=== PATIENT | female | born 1955 | race Caucasian/White ===

== ENCOUNTER → 2020-02-06 | Outpatient (CLI) | payer MEDICARE ==
[2020-02-06 12:34] LABS: BASO % 1 % (0-3); EOS % 0 % (0-3); HEMATOCRIT 24.3 % (36.0-47.0); HEMOGLOBIN 7.9 g/dL (12.0-15.5); LYMPH % 22 % (24-48); MEAN CORPUSCULAR HEMOGLOBIN 27 pg (25-35); MEAN CORPUSCULAR HGB CONC 33 g/dL (31-37); MEAN CORPUSCULAR VOLUME 84 fL (79-100); MONO # 0.2 x10^3/uL (0.0-1.1); MONO % 5 % (0-9); NEUT # 3.2 x10^3uL (1.8-7.7); NEUT % 72 % (31-73); PLATELET COUNT 296 x10^3/uL (140-400); RED BLOOD COUNT 2.89 x10^6/uL (3.50-5.40); RED CELL DISTRIBUTION WIDTH 14.6 % (11.5-14.5); WHITE BLOOD COUNT 4.4 x10^3/uL (4.0-11.0)
== END ==
LOC: LAB 11:41
PROVIDERS: ATTEND Obstetrics & Gynecology Gynecologic Oncology
DX: C56.9 Malignant neoplasm of unspecified ovary (principal)
CPT/HCPCS: 36415; 85025

== ENCOUNTER 2020-02-13 11:55 | Emergency (ER) | payer MEDICARE ==
[~2020-02-13] VITALS: Ht 165.1 cm; Wt 55.0 kg
[2020-02-13 12:09] VITALS: BP 106/70
--- NOTE | 2020-02-13 12:15 | PHYS DOC ---
General Adult EDM: Chief Complaint: SUTURE/STAPLE REMOVAL HPI: HPI: Patient is a 64-year-old female who presents for suture removal. Patient had a port placed 1 week ago for chemo treatments for ovarian cancer. Patient denies redness or pain to the site. (HAWA SYKES APRN) Review of Systems: Review of Systems: Constitutional: Denies fever or chills Eyes: Denies change in visual acuity HENT: Denies nasal congestion or sore throat Respiratory: Denies cough or shortness of breath Cardiovascular: Denies chest pain or edema GI: Denies abdominal pain, nausea, vomiting, bloody stools or diarrhea : Denies dysuria Musculoskeletal: Denies back pain or joint pain Integument: Denies rash Neurologic: Denies headache, focal weakness or sensory changes Endocrine: Denies polyuria or polydipsia Lymphatic: Denies swollen glands Psychiatric: Denies depression or anxiety (HAWA SYKES APRN) Physical Exam: PE: Constitutional: Well developed, well nourished, no acute distress, non-toxic appearance. [] HENT: Normocephalic, atraumatic, bilateral external ears normal, oropharynx moist, no oral exudates, nose normal. [] Eyes: PERRLA, EOMI, conjunctiva normal, no discharge. [] Neck: Normal range of motion, no tenderness, supple, no stridor. [] Cardiovascular:Heart rate regular rhythm, no murmur [] Lungs & Thorax: Bilateral breath sounds clear to auscultation [] Abdomen: Bowel sounds normal, soft, no tenderness, no masses, no pulsatile masses. [] Skin: Warm, dry, no erythema, no rash. [] Back: No tenderness, no CVA tenderness. [] Extremities: No tenderness, no cyanosis, no clubbing, ROM intact, no edema. [] Neurologic: Alert and oriented X 3, normal motor function, normal sensory function, no focal deficits noted. [] Psychologic: Affect normal, judgement normal, mood normal. [] (HAWA SYKES APRN) EKG: EKG: [] (HAWA SYKES APRN) Radiology/Procedures: Radiology/Procedures: [] (HAWA SYKES APRN) Heart Score: Risk Factors: Risk Factors: DM, Current or recent (<one month) smoker, HTN, HLP, family history of CAD, obesity. Risk Scores: Score 0 - 3: 2.5% MACE over next 6 weeks - Discharge Home Score 4 - 6: 20.3% MACE over next 6 weeks - Admit for Clinical Observation Score 7 - 10: 72.7% MACE over next 6 weeks - Early Invasive Strategies (HAWA SYKES APRN) Course & Med Decision Making: Course & Med Decision Making Pertinent Labs and Imaging studies reviewed. (See chart for details) [] 64-year-old female presents with suture removal from port placed 1 week ago. Patient denies pain or redness to incision site. (HAWA SYKES APRN) Course & Med Decision Making I have participated in the care of this patient and I have reviewed and agree with all pertinent clinical information above including history, exam, and recom mendations. (BENJAMIN CHURCH MD) Dragon Disclaimer: Dragon Disclaimer: This electronic medical record was generated, in whole or in part, using a voice recognition dictation system. (HAWA SYKES APRN) Departure Departure: Impression: Primary Impression: Visit for suture removal Disposition: 01 DC HOME SELF CARE/HOMELESS Condition: GOOD Referrals: JOSE J MCCONNELL RN, BC, [employer]ING OPERATOR (PCP) Patient Instructions: Suture Removal HAWA SYKES APRN Feb 13, 2020 12:15 BENJAMIN CHURCH MD Feb 14, 2020 13:11
== END 2020-02-13 12:45 | disposition home or self-care (01) ==
LOC: ER 11:55
DX: T14.8XXD Other injury of unspecified body region, subsequent encounter (principal); X58.XXXD Exposure to other specified factors, subsequent encounter
CPT/HCPCS: 99281

== ENCOUNTER → 2020-03-26 | Outpatient (CLI) | payer MEDICARE ==
[2020-03-26 12:05] LABS: BASO % 1 % (0-3); EOS % 0 % (0-3); HEMATOCRIT 27.7 % (36.0-47.0); HEMOGLOBIN 8.8 g/dL (12.0-15.5); LYMPH # 1.1 x10^3/uL (1.0-4.8); LYMPH % 21 % (24-48); MEAN CORPUSCULAR HEMOGLOBIN 29 pg (25-35); MEAN CORPUSCULAR HGB CONC 32 g/dL (31-37); MEAN CORPUSCULAR VOLUME 92 fL (79-100); MONO # 0.7 x10^3/uL (0.0-1.1); MONO % 13 % (0-9); NEUT # 3.4 x10^3uL (1.8-7.7); NEUT % 65 % (31-73); PLATELET COUNT 268 x10^3/uL (140-400); RED BLOOD COUNT 3.01 x10^6/uL (3.50-5.40); WHITE BLOOD COUNT 5.2 x10^3/uL (4.0-11.0)
[2020-03-26 12:12] LABS: ALBUMIN 2.8 g/dL (3.4-5.0); ALBUMIN/GLOBULIN RATIO 0.9 (1.0-1.7); CALCIUM 8.5 mg/dL (8.5-10.1); CREATININE 0.8 mg/dL (0.6-1.0); GFR 71.8; MAGNESIUM 1.9 mg/dL (1.8-2.4); TOTAL BILIRUBIN 0.2 mg/dL (0.2-1.0)
[2020-03-26 12:30] LABS: PLT ESTIMATE ADEQUATE (ADEQUATE)
[2020-03-26 12:31] LABS: ANISOCYTOSIS SLIGHT; HYPOCHROMIA SLIGHT; OVALOCYTES PRESENT; POLYCHROMASIA MOD
== END ==
LOC: LAB 10:49
PROVIDERS: ATTEND Obstetrics & Gynecology Gynecologic Oncology
DX: C56.9 Malignant neoplasm of unspecified ovary (principal)
CPT/HCPCS: 36415; 80053; 83735; 85025

== ENCOUNTER → 2020-04-02 | Outpatient (CLI) | payer MEDICARE ==
[2020-04-02 12:11] LABS: BASO % 0 % (0-3); EOS % 1 % (0-3); HEMATOCRIT 27.2 % (36.0-47.0); HEMOGLOBIN 8.8 g/dL (12.0-15.5); LYMPH # 1.1 x10^3/uL (1.0-4.8); LYMPH % 30 % (24-48); MEAN CORPUSCULAR HEMOGLOBIN 30 pg (25-35); MEAN CORPUSCULAR HGB CONC 32 g/dL (31-37); MEAN CORPUSCULAR VOLUME 91 fL (79-100); MONO # 0.2 x10^3/uL (0.0-1.1); MONO % 6 % (0-9); NEUT # 2.4 x10^3uL (1.8-7.7); NEUT % 63 % (31-73); PLATELET COUNT 163 x10^3/uL (140-400); RED BLOOD COUNT 2.97 x10^6/uL (3.50-5.40); RED CELL DISTRIBUTION WIDTH 21.4 % (11.5-14.5); WHITE BLOOD COUNT 3.8 x10^3/uL (4.0-11.0)
[2020-04-02 14:22] LABS: OVALOCYTES PRESENT; PLT ESTIMATE ADEQUATE (ADEQUATE); TEAR DROP CELLS PRESENT
== END ==
LOC: LAB 11:14
PROVIDERS: ATTEND Obstetrics & Gynecology Gynecologic Oncology
DX: C56.9 Malignant neoplasm of unspecified ovary (principal)
CPT/HCPCS: 36415; 85025

== ENCOUNTER → 2020-04-09 | Outpatient (CLI) | payer MEDICARE ==
[2020-04-09 15:36] LABS: BASO % 0 % (0-3); EOS % 1 % (0-3); HEMATOCRIT 31.5 % (36.0-47.0); LYMPH # 1.2 x10^3/uL (1.0-4.8); LYMPH % 33 % (24-48); MEAN CORPUSCULAR HEMOGLOBIN 30 pg (25-35); MEAN CORPUSCULAR HGB CONC 32 g/dL (31-37); MEAN CORPUSCULAR VOLUME 93 fL (79-100); MONO # 0.5 x10^3/uL (0.0-1.1); MONO % 15 % (0-9); NEUT # 1.8 x10^3uL (1.8-7.7); NEUT % 51 % (31-73); PLATELET COUNT 240 x10^3/uL (140-400); RED BLOOD COUNT 3.38 x10^6/uL (3.50-5.40); RED CELL DISTRIBUTION WIDTH 21.5 % (11.5-14.5); WHITE BLOOD COUNT 3.6 x10^3/uL (4.0-11.0)
[2020-04-09 16:06] LABS: ALBUMIN 3.3 g/dL (3.4-5.0); CALCIUM 8.8 mg/dL (8.5-10.1); CREATININE 0.7 mg/dL (0.6-1.0); GFR 83.7; TOTAL BILIRUBIN 0.2 mg/dL (0.2-1.0); TOTAL PROTEIN 6.6 g/dL (6.4-8.2)
[2020-04-09 16:07] LABS: MAGNESIUM 1.9 mg/dL (1.8-2.4)
[2020-04-09 22:17] LABS: ANISOCYTOSIS MOD; PLT ESTIMATE ADEQUATE (ADEQUATE)
== END ==
LOC: LAB 14:00
PROVIDERS: ATTEND Obstetrics & Gynecology Gynecologic Oncology
DX: C56.9 Malignant neoplasm of unspecified ovary (principal)
CPT/HCPCS: 36415; 80053; 83735; 85025

== ENCOUNTER → 2020-06-15 | Outpatient (CLI) | payer MEDICARE ==
--- NOTE | 2020-06-15 08:56 | RAD ---
ACUTE ABDOMEN SERIES History: Bloating, pain, constipation, ovarian cancer. Comparison: None. Findings: Frontal chest and supine and upright views of the abdomen. Cardiomediastinal silhouette is normal. There is no pleural effusion or pneumothorax. The lungs are clear. No pneumoperitoneum is identified. There are several air-fluid levels on the upright image. There is gaseous distention of colon in the central abdomen, probably the transverse colon. There are several air-filled nondilated small bowel loops. No obvious organomegaly. There is mild right convexity thoracic scoliosis. IMPRESSION: 1. No acute cardiopulmonary process. 2. Gaseous distention of the transverse colon. No distal colonic gas is seen. Colonic obstruction or ileus are considerations. Electronically signed by: Clement Augustin MD (06/15/2020 8:54 AM) [id number]
== END ==
LOC: RAD 08:16
DX: C56.9 Malignant neoplasm of unspecified ovary (principal); C77.8 Secondary and unspecified malignant neoplasm of lymph nodes of multiple regions; D64.81 Anemia due to antineoplastic chemotherapy; R18.8 Other ascites
CPT/HCPCS: 74022

== ENCOUNTER → 2020-07-17 | Outpatient (CLI) | payer MEDICARE ==
[2020-07-17 10:14] LABS: BASO % 1 % (0-3); EOS % 1 % (0-3); HEMATOCRIT 34.4 % (36.0-47.0); HEMOGLOBIN 11.2 g/dL (12.0-15.5); LYMPH # 1.7 x10^3/uL (1.0-4.8); LYMPH % 35 % (24-48); MEAN CORPUSCULAR HEMOGLOBIN 30 pg (25-35); MEAN CORPUSCULAR HGB CONC 33 g/dL (31-37); MEAN CORPUSCULAR VOLUME 92 fL (79-100); MONO # 0.2 x10^3/uL (0.0-1.1); MONO % 3 % (0-9); NEUT % 60 % (31-73); PLATELET COUNT 256 x10^3/uL (140-400); RED BLOOD COUNT 3.75 x10^6/uL (3.50-5.40); RED CELL DISTRIBUTION WIDTH 14.1 % (11.5-14.5)
== END ==
LOC: LAB 09:07
PROVIDERS: ATTEND Obstetrics & Gynecology Gynecologic Oncology
DX: C56.9 Malignant neoplasm of unspecified ovary (principal)
CPT/HCPCS: 36415; 85025

== ENCOUNTER → 2020-07-25 | Outpatient (CLI) | payer MEDICARE ==
[2020-07-25 12:45] LABS: BASO % 1 % (0-3); EOS % 1 % (0-3); HEMATOCRIT 34.3 % (36.0-47.0); HEMOGLOBIN 11.3 g/dL (12.0-15.5); LYMPH # 1.8 x10^3/uL (1.0-4.8); LYMPH % 40 % (24-48); MEAN CORPUSCULAR HEMOGLOBIN 30 pg (25-35); MEAN CORPUSCULAR HGB CONC 33 g/dL (31-37); MEAN CORPUSCULAR VOLUME 91 fL (79-100); MONO # 0.9 x10^3/uL (0.0-1.1); MONO % 20 % (0-9); NEUT # 1.8 x10^3uL (1.8-7.7); NEUT % 39 % (31-73); PLATELET COUNT 275 x10^3/uL (140-400); RED BLOOD COUNT 3.76 x10^6/uL (3.50-5.40); RED CELL DISTRIBUTION WIDTH 14.4 % (11.5-14.5); WHITE BLOOD COUNT 4.5 x10^3/uL (4.0-11.0)
[2020-07-25 12:53] LABS: ALBUMIN 3.4 g/dL (3.4-5.0); CALCIUM 9.3 mg/dL (8.5-10.1); CREATININE 0.8 mg/dL (0.6-1.0); GFR 71.8; MAGNESIUM 2.1 mg/dL (1.8-2.4); POTASSIUM 4.3 mmol/L (3.5-5.1); TOTAL BILIRUBIN 0.3 mg/dL (0.2-1.0); TOTAL PROTEIN 6.7 g/dL (6.4-8.2)
[2020-07-26 01:07] LABS: CA 125 7.3 U/mL (0.0-38.1)
[2020-07-26 17:10] LABS: CEA 1.7 ng/mL (0.0-4.7)
== END ==
LOC: LAB 11:47
PROVIDERS: ATTEND Obstetrics & Gynecology Gynecologic Oncology
DX: C56.9 Malignant neoplasm of unspecified ovary (principal)
CPT/HCPCS: 36415; 80053; 82378; 83735; 85025; 86301; 86304

== ENCOUNTER → 2020-08-07 | Outpatient (CLI) | payer MEDICARE ==
[2020-08-07 09:08] LABS: BASO % 1 % (0-3); EOS % 0 % (0-3); HEMATOCRIT 37.6 % (36.0-47.0); HEMOGLOBIN 12.5 g/dL (12.0-15.5); LYMPH % 33 % (24-48); MEAN CORPUSCULAR HEMOGLOBIN 31 pg (25-35); MEAN CORPUSCULAR HGB CONC 33 g/dL (31-37); MEAN CORPUSCULAR VOLUME 92 fL (79-100); MONO # 0.2 x10^3/uL (0.0-1.1); MONO % 4 % (0-9); NEUT # 3.7 x10^3uL (1.8-7.7); NEUT % 62 % (31-73); PLATELET COUNT 186 x10^3/uL (140-400); RED BLOOD COUNT 4.11 x10^6/uL (3.50-5.40); RED CELL DISTRIBUTION WIDTH 14.7 % (11.5-14.5); WHITE BLOOD COUNT 6.1 x10^3/uL (4.0-11.0)
== END ==
LOC: LAB 08:35
PROVIDERS: ATTEND Obstetrics & Gynecology Gynecologic Oncology
DX: C56.9 Malignant neoplasm of unspecified ovary (principal)
CPT/HCPCS: 36415; 85025

== ENCOUNTER → 2020-08-15 | Outpatient (CLI) | payer MEDICARE ==
[2020-08-15 10:30] LABS: BASO % 1 % (0-3); EOS % 1 % (0-3); HEMATOCRIT 34.9 % (36.0-47.0); HEMOGLOBIN 11.9 g/dL (12.0-15.5); LYMPH # 1.3 x10^3/uL (1.0-4.8); LYMPH % 41 % (24-48); MEAN CORPUSCULAR HEMOGLOBIN 31 pg (25-35); MEAN CORPUSCULAR HGB CONC 34 g/dL (31-37); MEAN CORPUSCULAR VOLUME 92 fL (79-100); MONO # 0.6 x10^3/uL (0.0-1.1); MONO % 20 % (0-9); NEUT # 1.3 x10^3uL (1.8-7.7); NEUT % 39 % (31-73); PLATELET COUNT 229 x10^3/uL (140-400); RED BLOOD COUNT 3.81 x10^6/uL (3.50-5.40); RED CELL DISTRIBUTION WIDTH 15.4 % (11.5-14.5); WHITE BLOOD COUNT 3.3 x10^3/uL (4.0-11.0)
[2020-08-15 11:43] LABS: ALBUMIN 3.6 g/dL (3.4-5.0); ALBUMIN/GLOBULIN RATIO 1.2 (1.0-1.7); CALCIUM 8.9 mg/dL (8.5-10.1); CREATININE 0.9 mg/dL (0.6-1.0); GFR 62.6; POTASSIUM 4.4 mmol/L (3.5-5.1); TOTAL BILIRUBIN 0.3 mg/dL (0.2-1.0); TOTAL PROTEIN 6.7 g/dL (6.4-8.2)
[2020-08-15 22:11] LABS: CA 125 6.4 U/mL (0.0-38.1)
[2020-08-16 20:11] LABS: CEA 1.8 ng/mL (0.0-4.7)
== END ==
LOC: LAB 09:30
PROVIDERS: ATTEND Obstetrics & Gynecology Gynecologic Oncology
DX: C56.9 Malignant neoplasm of unspecified ovary (principal); C78.6 Secondary malignant neoplasm of retroperitoneum and peritoneum; R18.8 Other ascites; D64.81 Anemia due to antineoplastic chemotherapy
CPT/HCPCS: 36415; 80053; 82378; 83735; 85025; 86301; 86304

== ENCOUNTER → 2020-11-09 | Outpatient (CLI) | payer MEDICARE ==
[~2020-11-09] MED LIST: IOHEXOL 240 MG/ML 50ML VIAL. ONE; IOHEXOL 240 MG/ML 50ML VIAL. PO ONE; IOHEXOL 300 MG/ML 75 ML VIAL. IV ONE
--- NOTE | 2020-11-09 13:36 | RAD ---
Exam: CT of chest, abdomen and pelvis with contrast INDICATION: Anemia due to chemotherapy, ovarian retroperitoneum cancer TECHNIQUE: Sequential axial images through the chest, abdomen and pelvis obtained following the admin istration of 75 mL of Isovue-370 IV contrast. Sagittal and coronal reformatted images were reconstruc brandon from the axial data and reviewed. Exposure: One or more of the following in the visualized dose reduction techniques were utilized for this examination: 1. Automated exposure control 2. Adjustment of the MA and/or KV according to patient size 3. Use of iterative of reconstructive technique Comparisons: None FINDINGS: Visualized portions of the thyroid are unremarkable. No enlarged mediastinal lymph nodes are identifi ed. Heart size is normal. No pericardial effusion. Ascending aorta is borderline in size measuring 4.1 cm in diameter. Standard three-vessel aortic arch anatomy. Pulmonary artery is not enlarged. Airways are patent. No consolidation or pneumothorax. Lung nodules as follows (seen on series #5): 3 mm nodule right upper lobe image 23 7 mm nodule right middle lobe image 66 4 mm pleural-based nodule right lower lobe image 63 2 mm groundglass nodule right lower lobe image 53 No pleural effusion or thickening. Liver, spleen, pancreas, gallbladder and adrenals are unremarkable. No perinephric inflammation or hydronephrosis. No renal or ureteral calculi are identified. Bladder is decompressed not well evaluated. Uterus is absent. No abnormal adnexal mass. Focal wall thickening noted at the sigmoid colon seen on series 8 image 114. Loop colostomy changes s een in the left upper quadrant. Appendix is not identified. Small bowel is unremarkable. No free intr a-abdominal air or fluid. Abdominal aorta has normal course and caliber. Abdominal vasculature is patent. No enlarged intra-abdominal lymph nodes are identified. No suspicious osseous lesions or acute fractures. IMPRESSION: 1. Postoperative changes of a loop colostomy seen in the left upper quadrant. 2. Focal masslike thickening at the sigmoid colon as described above. Correlate with patient history . In the absence of recent colonoscopy or explanation for findings direct visualization with colonosc opy is recommended. 3. Several pulmonary nodules as described above which are indeterminate with history of malignancy. Correlation with prior imaging is recommended. If prior imaging is provided, an addendum can be made for comparison. 4. Borderline size of the ascending aorta measuring up to 4.1 cm in diameter. Surveillance imaging i s recommended. Electronically signed by: Lenard Rodgers MD (11/09/2020 1:33 PM) [facility]
== END ==
LOC: CT 08:47
PROVIDERS: ATTEND Obstetrics & Gynecology Gynecologic Oncology
DX: C56.9 Malignant neoplasm of unspecified ovary (principal); K63.89 Other specified diseases of intestine; R91.8 Other nonspecific abnormal finding of lung field; Z93.3 Colostomy status
CPT/HCPCS: 71260; 74177; Q9966; Q9967

== ENCOUNTER → 2021-01-03 | Outpatient (CLI) | payer MEDICARE ==
--- NOTE | 2021-01-03 15:33 | RAD ---
PQRS Compliance Statement: One or more of the following individualized dose reduction techniques were utilized for this examinat ion: 1. Automated exposure control 2. Adjustment of the mA and/or kV according to patient size 3. Use of iterative reconstruction technique CT CHEST_ABDOMEN_AND PELVIS W/O AND WITH CONTRAST- 01/03/2021 11:04 AM INDICATION: Malignant neoplasm. Ovarian cancer. COMPARISON: CT chest, abdomen and pelvis 11/09/2020, CT chest 04/13/2020 TECHNIQUE: Multiple axial CT images of the chest, abdomen and pelvis were obtained without intravenou s contrast. Oral contrast administered. Coronal and sagittal reformats are provided. FINDINGS: Thyroid gland is normal in appearance. There are no pathologically enlarged axillary, mediastinal or hilar lymph nodes. Heart size is within normal limits. Thoracic ectasia of the ascending thoracic aorta measures 4.0 cm. Findings are stable . There is no significant pericardial effusion. Thoracic esophagus is normal in appearance. Anterior chest wall appears intact. Aortic valvular calcifications are present. 2 mm solid noncalcified pulmonary nodule in the right upper lobe is stable (series 2, image 28), not significantly changed since 04/13/2020. Stable 7 mm solid noncalcified pulmonary nodule in the right m iddle lobe (series 2, image 71), not significantly changed since 11/09/2020. Stable 4 mm pleural-based nodule in the lateral right basal lower lobe (series 2, image 65), stable from 04/13/2020. No new or enlarging solid noncalcified pulmonary nodules. There are no pleural effusions, pulmonary vascular co ngestion or pneumothorax. Lungs are clear without focal airspace consolidation. Central airways are c lear. Evaluation of solid abdominal viscera is limited by lack of intravenous contrast. Liver, spleen, adre nal glands, pancreas and gallbladder are normal in appearance. The abdominal aorta is normal in cours e and caliber. There are no pathologically enlarged lymph nodes in the abdomen and pelvis. There is n o abdominal free fluid. There is no free intraperitoneal air. Uterus is surgically absent. Urinary bl adder is within normal limits given degree of distention. Colostomy identified in the left lower quad rant. Appendix is not definitively visualized. No bowel obstruction or inflammation. There is stable short segment masslike thickening involving the rectosigmoid junction measuring 3.2 cm x 2.7 cm, not significantly changed since the prior examination. The kidneys are relatively symmetric in appearance. There is no suspicious renal mass within the limi tations of a noncontrast examination. There is no hydronephrosis. There are no calculi within the kid neys, ureters or urinary bladder. No suspicious osseous abnormality. No paraspinal soft tissue mass. IMPRESSION: 1. Stable solid noncalcified pulmonary nodules measuring up to 7 mm within the right middle lobe. 7 m m nodule is stable dating back to 11/09/2020. Continued surveillance is recommended. 2. Focal masslike thickening at the rectosigmoid junction appears stable. 3. Colostomy changes are identified without evidence for bowel obstruction. 4. Aortic valvular calcifications are present. Ectasia of the ascending thoracic aorta measuring up t o 4.0 cm. Electronically signed by: Annelise Castellano MD (01/03/2021 3:30 PM) [facility]
== END ==
LOC: CT 10:37
PROVIDERS: ATTEND Obstetrics & Gynecology Gynecologic Oncology
DX: R91.8 Other nonspecific abnormal finding of lung field (principal); I77.810 Thoracic aortic ectasia; I35.8 Other nonrheumatic aortic valve disorders; K63.89 Other specified diseases of intestine; Z90.710 Acquired absence of both cervix and uterus; Z93.3 Colostomy status
CPT/HCPCS: 71270; 74178; Q9966; Q9967

== ENCOUNTER → 2021-04-12 | Outpatient (CLI) | payer MEDICARE ==
[~2021-04-12] MED LIST changes: -IOHEXOL 240 MG/ML 50ML VIAL. PO ONE; -IOHEXOL 300 MG/ML 75 ML VIAL. IV ONE; +IOHEXOL 300 MG/ML 75 ML VIAL. ONE
[2021-04-12] MEDS: IOHEXOL 300 MG/ML 75 ML VIAL. IV ONE (11:26)
[2021-04-12 11:27] LABS: CREATININE 0.7 mg/dL (0.6-1.0); GFR 83.5
--- NOTE | 2021-04-12 12:24 | RAD ---
PQRS Compliance Statement: One or more of the following individualized dose reduction techniques were utilized for this examinat ion: 1. Automated exposure control 2. Adjustment of the mA and/or kV according to patient size 3. Use of iterative reconstruction technique CT CHEST+ABD+PELVIS W Clinical Indication: Reason: TUMOR REMOVED FROM COLON - HAS AN OSTOMY BAG / Ovarian cancer with mets Comparison: CT chest abdomen and pelvis with and without contrast, January 03, 2021. Technique: Helical CT imaging of the abdomen and pelvis is performed after 75 cc of Omnipaque 300 IV contrast. Oral contrast also administered. Findings: There is ectasia of the ascending thoracic aorta, diameter is 4.2 cm. This appears unchanged. The pul monary trunk is normal caliber. No dissection or pulmonary embolus. Calcific aortic valve stenosis. T here is no adenopathy in the chest. Cardiac size is normal, no pericardial effusion. There is no pleural abnormality. The central airways are patent. 7 mm right middle lobe nodule is sta ble, image 69. Tiny subpleural scarring in the lateral right lower lobe is stable. Lungs otherwise cl ear. Liver, gallbladder, spleen, pancreas, adrenal glands, abdominal aorta, and kidneys are normal. Stomach unremarkable. There is left lower quadrant ostomy. There is no dilated small bowel. There is an approximately 2 cm left infraumbilical hernia containing a knuckle of small bowel, image 74. Massl daniel thickening of the rectosigmoid junction is without significant change, image 111. The proximal si gmoid colon is not well distended accentuating the wall thickness. No other colon wall thickening is seen. No evidence of bowel obstruction. The appendix is not identified, no secondary signs of appendi citis. No peritoneal soft tissue nodules are identified. Urinary bladder is normal. Hysterectomy. No pelvic free fluid. No osteolytic or blastic lesion is identified. IMPRESSION: 1. There is unchanged noncalcified 7 mm pulmonary nodule in the right middle lobe. 2. There is unchanged masslike thickening at the rectosigmoid junction. 3. Calcific aortic valve stenosis and ectasia of the ascending thoracic aorta. Electronically signed by: Clement Augustin MD (04/12/2021 12:21 PM) [facility]
== END ==
LOC: CT 09:57
PROVIDERS: ATTEND Obstetrics & Gynecology Gynecologic Oncology
DX: C78.6 Secondary malignant neoplasm of retroperitoneum and peritoneum (principal); C56.9 Malignant neoplasm of unspecified ovary; R18.8 Other ascites; D64.81 Anemia due to antineoplastic chemotherapy; I35.0 Nonrheumatic aortic (valve) stenosis; I77.810 Thoracic aortic ectasia; K42.9 Umbilical hernia without obstruction or gangrene; J98.4 Other disorders of lung
CPT/HCPCS: 36415; 71260; 74177; 82565; 84520; Q9967